=== PATIENT | female | born 1955 | race Hispanic/Latino ===

== ENCOUNTER 2017-01-16 21:14 | Emergency (ER) | payer OTHER ==
[~2017-01-16] VITALS: Ht 152.4 cm; Wt 53.5 kg
--- NOTE | 2017-01-16 22:19 | ED GI/GU/ABDOMINAL COMPLAINT ---
History of Present Illness General Chief Complaint: General Adult Stated Complaint: GALLBLADDER SURGERY 01/02, ?INFECTED PAIN Source: patient Exam Limitations: no limitations Vital Signs & Intake/Output Vital Signs & Intake/Output Vital Signs Date Time Temp Pulse Resp B/P Pulse O2 O2 Flow FiO2 Ox Delivery Rate 01/16 2333 96.9 95 18 138/63 99 Room Air 01/16 2150 98.3 112 18 185/95 97 Room Air ED Intake and Output 01/17 0000 01/16 1200 Intake Total 1000 Output Total Balance 1000 Intake, IV 1000 Patient 118 lb Weight Allergies Coded Allergies: No Known Allergies (01/16/17) Reconcile Medications Cephalexin (Keflex) 500 MG CAPSULE 1 CAP PO TID cellulitis Hydrochlorothiazide 25 MG TABLET 1 TAB PO DAILY B/P (Reported) Insulin Glargine,Hum.rec.anlog (Lantus Solostar) 100 UNIT/ML (3 ML) INSULN.PEN 8 UNIT SC QPM DIABETES (Reported) Lisinopril 20 MG TABLET 1 TAB PO DAILY B/P (Reported) Sitagliptin Phos/Metformin HCl (Janumet 50-1,000 MG Tablet) 50 MG-1,000 MG TABLET 1 TAB PO BID DIABETES (Reported) Triage Note: RECEIVED 61 YO FEMALE S/P LAP. HEATHER 01/02, C/O PUNCTURE WOUND APPEARS RED, INFLAMMED AND DRAINING AND PT REPORTS PAIN TO AREA. PT ALSO REPORTS THROBBIBG PAIN TO RIGHT ABDOMIN AND BILATERAL LOWER BACK AREA. Triage Nurses Notes Reviewed? yes ? n Is pt currently ? No HPI: Patient is a 61-year-old female presents complaining of right-sided abdominal pain and wound infection. Patient had a laparoscopic cholecystectomy by Dr. Perez at [facility] on January 02. Patient reports she had a postop follow -up on Thursday and everything reportedly was healing well. Patient reports pain started today and the wound opened up with some redness around the wound. Pain is severe, worsens with palpation. Patient reports associated headache. Patient did not take her Lantus for her blood pressure medication for the past couple of days and she has been staying with her family away from her home. Denies fevers, vomiting, urinary symptoms (EMMA CLAYTON,KARYNA) Past History Travel History Traveled to No past 21 day No Medical History Any Pertinent Medical History? see below for history Neurological: NONE EENT: NONE Cardiovascular: hypertension, hyperlipidemia Respiratory: NONE Gastrointestinal: NONE Hepatic: cholecystitis Renal: NONE Musculoskeletal: NONE Psychiatric: NONE Endocrine: diabetes Blood Disorders: NONE Cancer(s): NONE Surgical History Surgical History: cholecystectomy Psychosocial History What is your primary language Hungarian Tobacco Use: Never used Family History Hx Contributory? No (KARYNA MARROQUIN) Review of Systems Review of Systems Constitutional: Denies: chills, fever. EENTM: Reports: no symptoms. Respiratory: Denies: cough, short of breath. Cardiovascular: Denies: chest pain. GI: Reports: see HPI, abdominal pain. Denies: vomiting. Genitourinary: Reports: no symptoms. Musculoskeletal: Reports: no symptoms. Skin: Reports: see HPI. Neurological/Psychological: Reports: headache. Hematologic/Endocrine: Reports: no symptoms. Immunologic/Allergic: Reports: no symptoms. (KARYNA MARROQUIN) Physical Exam Physical Exam General Appearance: well developed/nourished, alert, awake Head: atraumatic, normal appearance Eyes: Bilateral: normal appearance, PERRL, EOMI. Ears, Nose, Throat, Mouth: hearing grossly normal, moist mucous membrane Neck: normal inspection, supple, full range of motion Respiratory: no respiratory distress Cardiovascular: tachycardia (regular rhythm) Gastrointestinal: soft, mild RUQ tenderness. trocar site right mid abdomen wound dehiscence with 0.5-1 cm surrounding erythema, granulation tissue in the wound. 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 No Severe Sepsis Present: No Septic Shock Present: No (KARYNA MARROQUIN) Progress Differential Diagnosis: postop infection, intra-abdominal abscess, wound dehiscence Plan of Care: Orders Procedure Date/time Status Add-on Test (ER Only) 01/16 2318 Active CULTURE,URINE 01/16 2245 Active FingerStick- Glucose 01/16 2218 Active URINALYSIS 01/16 2218 Complete PROTHROMBIN TIME 01/16 2218 Complete LACTIC ACID 01/16 2218 Complete COMPREHENSIVE METABOLIC PANEL 01/16 2218 Complete CBC WITHOUT DIFFERENTIAL 01/16 2218 Complete TYPE & SCREEN (NOT X-MATCH) 01/16 2218 Complete EKG 01/16 2123 Active Laboratory Tests 01/17/17 0118: Lactic Acid Cancelled 01/16/172244: Urine Color YEL, Urine Clarity CLEAR, Urine pH 6.0, Ur Specific Desha 1.025, Urine Protein TRACE H, Urine Ketones TRACE H, Urine Nitrite NEG, Urine Bilirubin NEG, Urine Urobilinogen 0.2, Ur Leukocyte Esterase TRACE H, Ur Microscopic SEDIMENT EXAMINED, Urine RBC RARE, Urine WBC 3-5 H, Ur Epithelial Cells FEW, Urine Bacteria FEW H, Urine Mucus MOD H, Urine Hemoglobin NEG, Urine Glucose NEG 01/16/172229: Anion Gap 12, Estimated GFR > 60, BUN/Creatinine Ratio 26.3 H, Glucose 161 H, Lactic Acid 1.4, Calcium 10.7 H, Total Bilirubin 0.4, AST 20, ALT 31, Alkaline Phosphatase 98, Total Protein 7.8, Albumin 4.5, Globulin 3.3, Albumin/Globulin Ratio 1.4, PT 11.8, INR 1.13, CBC w Diff NO MAN DIFF REQ, RBC 4.68, MCV 79.7 L, MCH 26.1 L, RDW 14.0, MPV 8.1, Gran % 57.6, Lymphocytes % 30.5, Monocytes % 8.4 , Eosinophils % 2.7, Basophils % 0.8, Absolute Granulocytes 4.1, Absolute Lymphocytes 2.2, Absolute Monocytes 0.6, Absolute Eosinophils 0.2, Absolute Basophils 0.1, PUBS MCHC 32.8 L 01/16/172122: Troponin I Cancelled, CBC w Diff Cancelled, WBC Cancelled, RBC Cancelled, Hgb Cancelled, Hct Cancelled, MCV Cancelled, MCH Cancelled, RDW Cancelled, Plt Count Cancelled, MPV Cancelled, PUBS MCHC Cancelled Microbiology 01/16 2245 URINE ROUT: Urine Culture - RECD Diagnostic Imaging: Viewed by Me: CT Scan. Discussed w/RAD: CT Scan. Radiology Impression: PATIENT: ZION HOU PRESENT AGE: 61 PATIENT ACCOUNT NO: [id number] : 53 LOCATION: [facility] ORDERING PHYSICIAN: KARYNA CLAYTON SERVICE DATE: 01/16/17 EXAM TYPE: CAT - CT ABD & PELVIS W IV CONTRAST EXAMINATION: CT ABDOMEN AND PELVIS WITH CONTRAST CLINICAL INFORMATION: Abdominal pain and tenderness. COMPARISON: None. TECHNIQUE : Contiguous axial thin section helical images of the abdomen and pelvis were performed following the administration of 100 mL of intravenous Omnipaque 300. The data set was reformatted in the coronal and sagittal planes and reviewed on an independent workstation. DLP: 264 mGy-cm. FINDINGS: There is mild dependent bibasilar atelectasis. The visualized lung bases are otherwise clear. The visualized portions of the heart are unremarkable. The liver is of normal size and attenuation without focal lesions nor intrahepatic biliary ductal dilation. The patient is status post cholecystectomy. Surgical clips are identified. The spleen, pancreas, adrenal glands are unremarkable. Both kidneys are of normal size and attenuation without hydronephrosis or nephrolithiasis. Following the administration of IV contrast, prompt symmetric nephrograms are displayed. There is no abdominal free fluid. There is neither mesenteric nor retroperitoneal lymphadenopathy. Normal unopacified loops of small and large bowel are identified. There is no pelvic free fluid. The urinary bladder is unremarkable. There is neither pelvic nor inguinal lymphadenopathy. Bone windows: Neither sclerotic nor lytic bone lesions are identified. IMPRESSION: No evidence for acute abdominal or pelvic inflammatory or infectious processes. Status post cholecystectomy. DICTATED BY: ERIKA MERCEDES MD DATE/TIME DICTATED:01/16/172331 SPRAY DYER:HODAN DATE/TIME TRANSCRIBED:01/16/172331 CONFIDENTIAL, DO NOT COPY WITHOUT APPROPRIATE AUTHORIZATION. <Electronically signed in Other Vendor System> SIGNED BY: ERIKA MERCEDES MD 01/16/176 Initial ED EKG: none (KARYNA MARROQUIN) Departure Departure Disposition: HOME OR SELF CARE Condition: Stable Clinical Impression Primary Impression: Wound dehiscence Secondary Impressions: Wound infection after surgery Qualifiers: Encounter type: initial encounter Qualified Code: T81.4XXA - Infection following a procedure, initial encounter Referrals: UNKNOWN (PCP) Additional Instructions: Follow-up with your surgeon and reggie Barillas next week for further evaluation. Call Thursday for appointment. Return to the emergency department if redness spreading, fevers, or worsening of symptoms. Departure Forms: Customer Survey General Discharge Information Prescriptions: Current Visit Scripts Cephalexin (Keflex) 1 CAP PO TID #21 CAP (KARYNA MARROQUIN) PA/DIRECTOR ELECTRONICS Co-Sign Statement Statement: ED Attending supervision documentation- [] I saw and evaluated the patient. I have also reviewed all the pertinent lab results and diagnostic results. I agree with the findings and the plan of care as documented in the PA's/DIRECTOR ELECTRON[employer]'s documentation. [x] I have reviewed the ED Record and agree with the PA's/DIRECTOR [employer]LECT[employer]'s documentation. [] Additions or exceptions (if any) to the PAs/DIRECTOR ELECTRON[employer]'s note and plan are summarized below: [] (GAVINO ANAYA,KODI Schwarz)
[2017-01-16 22:42] LABS: ABSOLUTE BASOPHIL COUNT 0.1 /CUMM (0.0-0.2); ABSOLUTE EOSINOPHIL COUNT 0.2 /CUMM (0.0-0.7); ABSOLUTE GRANULOCYTE CT 4.1 /CUMM (1.4-6.5); ABSOLUTE LYMPH COUNT 2.2 /CUMM (1.2-3.4); ABSOLUTE MONOCYTE COUNT 0.6 /CUMM (0.10-0.60); BASOPHIL % 0.8 % (0.0-2.0); EOSINOPHIL % 2.7 % (0-5); GRANULOCYTE % 57.6 % (42.2-75.2); HEMATOCRIT 37.3 % (37-47); MEAN CORPUSCULAR HGB 26.1 PG (27.0-31.0); MEAN CORPUSCULAR HGB CONC 32.8 G/DL (33.0-37.0); MEAN CORPUSCULAR VOLUME 79.7 FL (81.0-99.0); MEAN PLATELET VOLUME 8.1 FL (7.4-10.4); PLATELET COUNT 324 /CUMM (130-400); RED BLOOD CELL CT 4.68 /CUMM (4.20-5.40); WHITE BLOOD CELL COUNT 7.1 /CUMM (4.8-10.8)
[2017-01-16 22:56] LABS: PT 11.8 SEC (9.4-12.5)
[2017-01-16] MEDS ORDERED: LISINOPRIL20 M1 PO (22:58)
[2017-01-16] MEDS ORDERED: HYDROCHLOROTHIA25 M1 PO (22:59)
[2017-01-16] MEDS ORDERED: LANTUS SOL100 UNIT/1 SC (22:59)
[2017-01-16] MEDS ORDERED: JANUMET 50-1,01 EACH PO (23:00)
[2017-01-16 23:33] VITALS: BP 138/63
--- NOTE | 2017-01-16 23:39 | CT SCAN REPORT ---
EXAMINATION: CT ABDOMEN AND PELVIS WITH CONTRAST CLINICAL INFORMATION: Abdominal pain and tenderness. COMPARISON: None. TECHNIQUE: Contiguous axial thin section helical images of the abdomen and pelvis were performed following the administration of 100 mL of intravenous Omnipaque 300. The data set was reformatted in the coronal and sagittal planes and reviewed on an independent workstation. DLP: 264 mGy-cm. FINDINGS: There is mild dependent bibasilar atelectasis. The visualized lung bases are otherwise clear. The visualized portions of the heart are unremarkable. The liver is of normal size and attenuation without focal lesions nor intrahepatic biliary ductal dilation. The patient is status post cholecystectomy. Surgical clips are identified. The spleen, pancreas, adrenal glands are unremarkable. Both kidneys are of normal size and attenuation without hydronephrosis or nephrolithiasis. Following the administration of IV contrast, prompt symmetric nephrograms are displayed. There is no abdominal free fluid. There is neither mesenteric nor retroperitoneal lymphadenopathy. Normal unopacified loops of small and large bowel are identified. There is no pelvic free fluid. The urinary bladder is unremarkable. There is neither pelvic nor inguinal lymphadenopathy. Bone windows: Neither sclerotic nor lytic bone lesions are identified. IMPRESSION: No evidence for acute abdominal or pelvic inflammatory or infectious processes. Status post cholecystectomy.
[2017-01-16] MEDS ORDERED: KEFLEX500 M1 PO (23:52)
== END 2017-01-17 00:07 ==
LOC: ERH 21:14
PROVIDERS: Physician Assistant
DX: T81.30XA Disruption of wound, unspecified, initial encounter (principal); T81.4XXA Infection following a procedure, initial encounter
CPT/HCPCS: 74177; 81001; 87086; 96374